=== PATIENT | female | born 1960 | race Caucasian/White ===

== ENCOUNTER 2020-12-09 18:21 | Emergency (ER) | payer OTHER ==
[2020-12-09 19:06] VITALS: O2SAT 97
--- NOTE | 2020-12-09 19:54 | ERPHSYRPT ---
- History of Present Illness Time Seen by Provider: 12/09/20 19:51 Source: patient Exam Limitations: no limitations Patient Subjective Stated Complaint: Pt states "I have a UTI. I know I have one. [facility] then they finally told me they did not have a p rovider. I tried to take azo but I cannot wait until friday. I just need a shot and be done." Triage Nursing Assessment: Pt presented alert and oriented X 3, skin pwd pt ambu lates with an upright steady gait, able to speak in clear full sentences pt stated she has urinary frequency. PT in no apparent respiratory distress. Physician History: pt reports her usual UTI symptoms - no abd pain , + dysuria, tender only at suprapubic area no adnexal tenderness and no reported discharge . abd nontender without peritoneal signs. no other symptoms reported . Timing/Duration: today Activites at Onset: none Quality: burning Onset Location: suprapubic, urethral Pain Radiation: none Severity of Pain-Max: moderate Severity of Pain-Current: moderate Prior abdominal problems: similar symptoms Sexual intercourse history: non-contributory Modifying Factors: Improves With: nothing Associated Symptoms: urinary frequency Allergies/Adverse Reactions: No Known Drug Allergies Allergy (Verified 12/09/20 19:06) Home Medications: hydroCHLOROthiazide [Hydrochlorothiazide] 12.5 mg PO DAILY 12/09/20 [History] Hx Tetanus, Diphtheria Vaccination/Date Given: No Hx Influenza Vaccination/Date Given: Yes Hx Pneumococcal Vaccination/Date Given: Yes Travel Risk - International Travel Have you traveled outside of the country in past 3 weeks: No - Coronavirus Screening Are you exhibiting any of the following symptoms?: No Close contact with a COVID-19 positive Pt in past 14-21 Days: No - Vaccine Status Have you recieved a Covid-19 vaccination: Yes Machine [employer]: Moderna - Vaccination Dates Date of 2cond Vaccination (if applicable): 10/12/2020 - Review of Systems Constitutional: No Fever, No Chills Eyes: No Symptoms Ears, Nose, & Throat: No Symptoms Respiratory: No Cough, No Dyspnea Cardiac: No Chest Pain, No Edema, No Syncope Abdominal/Gastrointestinal: No Abdominal Pain, No Nausea, No Vomiting, No Diarrhea Genitourinary Symptoms: Dysuria, Frequency, Urgency Musculoskeletal: No Symptoms, No Back Pain, No Neck Pain Skin: No Symptoms, No Rash Neurological: No Dizziness, No Focal Weakness, No Sensory Changes Psychological: No Symptoms Endocrine: No Symptoms Hematologic/Lymphatic: No Symptoms Immunological/Allergic: No Symptoms All Other Systems: Reviewed and Negative - Past Medical History Pertinent Past Medical History: Yes Cardiac History: Hypertension - Past Surgical History Past Surgical History: Yes Other Surgical History: hystectomy. neck - Social History Smoking Status: Former smoker Exposure to second hand smoke: No Drug Use: none Patient Lives Alone: No - Female History Hx Now: No - Nursing Vital Signs Nursing Vital Signs: Initial Vital Signs Temperature 98.5 F 12/09/20 19:00 Pulse Rate 90 12/09/20 19:00 Respiratory Rate 20 12/09/20 19:00 Blood Pressure 149/67 12/09/20 19:00 O2 Sat by Pulse Oximetry 97 12/09/20 19:00 Pain Scale Pain Intensity 6 - Physical Exam General Appearance: no apparent distress, alert Eye Exam: PERRL/EOMI, eyes nml inspection Ears, Nose, Throat Exam: normal ENT inspection, TMs normal, pharynx normal, moist mucous membranes Neck Exam: normal inspection, non-tender, supple, full range of motion Respiratory Exam: normal breath sounds, lungs clear, No respiratory distress Cardiovascular Exam: regular rate/rhythm, normal heart sounds, normal peripheral pulses Gastrointestinal/Abdomen Exam: soft, No tenderness, No mass Pelvic Exam: deferred Rectal Exam: deferred Back Exam: normal inspection, normal range of motion, No CVA tenderness, No vertebral tenderness Extremity Exam: normal inspection, normal range of motion, pelvis stable Neurologic Exam: alert, oriented x 3, cooperative, tank maker wood II-XII nml as tested, normal mood/affect, sensation nml, No motor deficits Skin Exam: normal color, warm, dry Lymphatic Exam: No adenopathy SpO2: 97 - Course Nursing assessment & vital signs reviewed: Yes Ordered Tests: Active Orders 24 hr Category Date Time Status CULTURE,URINE Stat Lab 12/09/20 19:54 Received UA W/RFX UR CULTURE Stat Lab 12/09/20 19:54 Completed Medication Summary Discontinued Medications Generic Name Dose Route Start Last Admin Trade Name Freq PRN Reason Stop Dose Admin Ceftriaxone Sodium 1,000 mg 12/09/20 19:55 12/09/20 20:28 Rocephin 1000 Mg Inj IM 12/09/20 19:56 1,000 mg STAT ONE Administration Ceftriaxone Sodium Confirm 12/09/20 20:01 Rocephin 1000 Mg Inj Administered 12/09/20 20:02 Dose 1,000 mg .ROUTE .STK-MED ONE Cephalexin HCl 500 mg 12/09/20 19:56 12/09/20 20:28 Keflex 500 Mg PO 12/09/20 19:57 500 mg STAT ONE Administration Cephalexin HCl Confirm 12/09/20 20:00 Keflex 500 Mg Administered 12/09/20 20:01 Dose 500 mg .ROUTE .STK-MED ONE Lab/Rad Data: Laboratory Results 12/09/20 Range/Units 19:54 Urine Color ABDULAZIZ (YELLOW) Urine Appearance CLOUDY (CLEAR) Urine pH 5.0 (5-6) Ur Specific [place] 1.021 (1.005-1.025) Urine Protein 100 (Negative) Urine Ketones NEGATIVE (NEGATIVE) Urine Blood LARGE (0-5) Wilmer/ul Urine Nitrite POSITIVE (NEGATIVE) Urine Bilirubin NEGATIVE (NEGATIVE) Urine Urobilinogen 4 (0-1) mg/dL Ur Leukocyte Esterase SMALL (NEGATIVE) Urine WBC (Auto) 51-100 (0-5) /HPF Urine RBC (Auto) >101 (0-2) /HPF U Epithel Cells (Auto) RARE (FEW) /HPF Urine Bacteria (Auto) RARE (NEGATIVE) /HPF Urine Mucus (Auto) SLIGHT (NEGATIVE) /HPF Urine Culture Reflexed YES (NO) Urine Glucose NEGATIVE (NEGATIVE) mg/dL - Progress Progress: improved, re-examined Air Movement: good Progress Note: 12/09/20 20:40 pt is taking azo gantrisin which is not improving , so will change to cephalsporins. Blood Culture(s) Obtained: No Antibiotics given: No Counseled pt/family regarding: lab results, diagnosis, need for follow-up - Departure Departure Disposition: Home Clinical Impression: Urinary tract infection with hematuria Condition: Good Critical Care Time: No Referrals: BALJINDER YOO [Primary Care Provider] - Instructions: Urinary Tract Infection, Adult (DC), Blood in the Urine (Hematuria), Adult (DC) Additional Instructions: followup with your DrErica to recheck urine and blood in urine and return meantime if not improving. followup BP with your doctor. Prescriptions: Cephalexin Mh 500 mg [Keflex 500 mg] 500 mg PO TID #30 capsule
[2020-12-09] MEDS ORDERED: Rocephin 1000 MG INJ IM ONE (19:55)
[2020-12-09] MEDS ORDERED: KEFLEX 500 MG PO ONE (19:56)
[2020-12-09] MEDS ORDERED: KEFLEX 500 MG ONE (20:00)
[2020-12-09] MEDS ORDERED: Rocephin 1000 MG INJ ONE (20:01)
[2020-12-09 20:21] LABS: Appearance CLOUDY (CLEAR); Bacteria RARE /HPF (NEGATIVE); Bilirubin NEGATIVE (NEGATIVE); Blood LARGE Ery/ul (0-5); Epithelial Cells RARE /HPF (FEW); Glucose NEGATIVE (NEGATIVE); Ketones NEGATIVE (NEGATIVE); Leukocyte Esterase SMALL (NEGATIVE); Mucus SLIGHT /HPF (NEGATIVE); Nitrite POSITIVE (NEGATIVE); Protein,Urine Dip 100 (Negative); Specific Gravity 1.021 (1.005-1.025); Urobilinogen 4 mg/dL (0-1); WBC 51-100 /HPF (0-5)
[2020-12-09 20:30] LABS: RBC >101 /HPF (0-2)
[2020-12-09 21:22] VITALS: BP 120/63; PULSE 76
== END 2020-12-09 21:00 | disposition home or self-care (01) ==
LOC: ED 18:21
DX: R31.9 Hematuria, unspecified (principal)
CPT/HCPCS: 81001; 87077; 87086; 87186; 96372; 99284; J0696; A9270-GY